=== PATIENT | male | born 1955 | race Caucasian/White ===

== ENCOUNTER → 2021-04-27 17:08 | Outpatient (CLI) | payer BC, SELFPAY ==
--- NOTE | 2021-04-27 17:20 | XR_ITS ---
PROCEDURE: XR CHEST PORTABLE CLINICAL HISTORY: COVID COMPARISON: No exams were available for comparison FINDINGS: The cardiomediastinal silhouette and pulmonary vascularity are within normal limits. There is an faint subtle nodular opacities in both lower lobes. Without previous films for comparison this could represent minimal chronic change but very minimal pneumonic infiltrate cannot be entirely excluded though I somewhat favor the former. No pleural fluid. IMPRESSION: Probably negative chest however if developing pneumonia is strongly suspected clinically follow-up PA and lateral in chest 1-2 days may helpful for additional evaluation . Dictated by: Dr. Gabino Brand MD 04/28/2021 07:46 Dr. Gabino Brand MD in [place] 04/28/2021 07:46
[2021-04-27 17:51] LABS: Basophils # 0.1 K/mm3 (0-0.2); Basophils % 0.7 % (0.1-2.0); Eosinophils # 0.4 K/mm3 (0.0-0.4); Hematocrit 35.7 % (42.0-52.0); Hemoglobin 11.7 g/dL (14.1-18.0); Lymphocytes # 1.2 K/mm3 (0.7-4.5); Lymphocytes % 12.4 % (10-50); Mean Corpuscular HGB Conc 32.7 g/dL (31.8-35.4); Mean Corpuscular Hemoglobin 28.2 pg (27.0-31.2); Mean Corpuscular Volume 86.2 fl (80-94); Mean Platelet Volume 7.5 fl (7.4-10.4); Monocytes # 0.5 K/mm3 (0.1-1.0); Monocytes % 5.2 % (1.7-9.3); Neutrophils # 7.2 K/mm3 (1.8-7.8); Neutrophils % 77.6 % (37.0-80.0); Platelet Count 270 K/mm3 (142-424); Red Blood Count 4.15 M/mm3 (4.60-6.20); Red Cell Distribution Width 15.8 % (11.5-17.5); White Blood Count 9.3 K/mm3 (4.8-10.8)
== END ==
PROVIDERS: PCP Physician Assistant; Visit Provider Physician Assistant
DX: Z20.822 Contact with and (suspected) exposure to COVID-19 (principal)
CPT/HCPCS: 36415; 71045; 85025

== ENCOUNTER 2021-09-07 11:23 | Emergency (ER) | payer BC, SELFPAY ==
[2021-09-07 11:24] VITALS: BP 133/82; PULSE 83; RESP 26; TEMP 36.8; O2SAT 95; BMI 30.8
--- NOTE | 2021-09-07 12:59 | HMH.EDUTC ---
[facility] [place] [facility] [place] Clinical Impression: Bronchitis Disposition: Home, Self-Care Condition on Discharge: Good Instructions: Acute Bronchitis, DI for Sinusitis Additional Instructions: ? Start antibiotic today. Be sure to complete entire prescription even if feeling better ? Monitor temp. Tylenol every 4 hours as needed and / or ibuprofen every 6 hours as needed ( As long as your primary care physician has told you that it ok to take both. For fever/aches/pains ER if no less than 101 despite Tylenol or Motrin ? Humidifier/vaporizer or hot steamy shower ? Inhaler every 4-6 hours as needed like we discussed. If unsure how to use it, ask pharmacist to demonstrate how. Should help open airways and improve cough, wheezing, and shortness of breath ? Mucinex for your cough Be sure to drink lots of water. *Start steroid tomorrow. Helps with inflammation therefore, cough and wheezing. Follow directions on the package. Reviewed side effects. Patient reports taking them before. Follow up IMMEDIATELY for new or worsening of symptoms OR no noticeable improvement over the next 48-72 hours. 911 immediately for any life threatening symptoms such as chest pain or difficulty breathing Prescriptions: predniSONE [Deltasone 10mg tablet] 10 mg PO BID 5 Days #10 tab Transmission Status: Received by [facility] guaiFENesin [Mucinex 600mg tablet] 1 - 2 tab PO BID #20 tab Transmission Status: Received by [facility] Azithromycin [Z-Cristopher 250mg Tab] 250 mg PO DIRECTED #6 tab Transmission Status: Received by [facility] Referrals: Jose Luis Carranza MD [Primary Care Provider] - As needed Medical Decision Making - Khanh Inquiry Pt receiving controlled substance: No Khanh was queried for this patient: No Vital Signs: 09/07/21 11:24 09/07/21 13:49 Temperature 98.3 F 98.3 F Temperature Source Oral Pulse Rate 83 Pulse Rate [Right Radial] 83 Respiratory Rate 26 H 20 Blood Pressure 133/82 Blood Pressure [Right Arm] 133/82 Blood Pressure Mean [Right Arm] 99 02 Sat by Pulse Oximetry 95 - Lab Data Lab results reviewed: Yes: I reviewed the patient's lab results. Orders (Tests/Meds): ED MEDICATIONS Discontinued Medications Generic Name Dose Route Start Last Admin Trade Name Freq PRN Reason Stop Dose Admin Ceftriaxone Sodium 1 gm 09/07/21 13:22 09/07/21 13:34 Ceftriaxone 1gm Vial IM 09/07/21 13:23 1 gm ONCE ONE Administration Lidocaine HCl 0 ml 09/07/21 13:22 09/07/21 13:34 Lidocaine 1% 5ml Pf Vial IM 09/07/21 13:23 2.1 ml ONCE ONE Administration Methylprednisolone Sodium Succinate 125 mg 09/07/21 13:22 09/07/21 13:34 Methylprednisolone Sod Succ 125mg Vial IM 09/07/21 13:23 125 mg ONCE ONE Administration [facility] [place] - General Stated complaint: chest congestion, covid symptoms Time Seen by Provider: 09/07/21 12:59 Mode of Arrival: Ambulatory Source of Information: Patient Limitations: No Limitations Description of Symptoms (Recalled from Triage Doc. by RN): C/O chest congestion and cough since Saturday HEENT Symptoms (Recalled from RN notes): No Resp Symptoms (Recalled from RN notes): Yes (cough, chest congestion) Skin Symptoms (Recalled from RN notes): No MS Symptoms (Recalled from RN notes): No Functional Status (Recalled from RN notes): n/a - History of Present Illness Provider Complaint: Patient States that he has been havins sinus drainage and chest congestion since Saturday States that he feels like he is having drainage in the back of his throat trying to move into his chest area States that he is not able to cough anything up States that also he was around someone last week that tested positive for COVID and wanted to get checked for it - Related Data Home Medications Medication Instructions Recorded Confirmed naproxen sodium 220 mg capsule 220 mg PO BID PRN 07/28/21 07/28/21 omeprazole 10 mg capsule,delayed 10 mg PO DAILY 07/28/21 07/28/21 rele
[2021-09-07 13:49] VITALS: BP 133/82; PULSE 83; RESP 20; TEMP 36.8; O2SAT 95
== END 2021-09-07 13:52 | disposition home or self-care (01) ==
PROVIDERS: Emergency Provider Nurse Practitioner; PCP Family Medicine
DX: U07.1 COVID-19 (principal); J20.9 Acute bronchitis, unspecified; K21.9 Gastro-esophageal reflux disease without esophagitis
CPT/HCPCS: 96372; 99202; C9803; G0463; U0003; U0005

== ENCOUNTER → 2022-07-03 10:43 | Outpatient (CLI) | payer BC, SELFPAY ==
--- NOTE | 2022-07-03 10:51 | XR_ITS ---
FINAL REPORT CLINICAL HISTORY: SOB COMPARISON: 04/27/2021 FINDINGS: Two views of the chest were obtained. The heart size and pulmonary vascularity are within normal limits. The mediastinum is normal. No acute pulmonary abnormality is identified. There is no pneumothorax. The bony thorax is intact. IMPRESSION: No active cardiopulmonary disease. Reviewed, Interpreted and Dictated by Avery Grant III, MD Transcribed by Maricruz Sood Authenticated and [facility]
--- NOTE | 2022-07-03 11:12 | ECG_ITS ---
APPROVED REPORT Exam: Resting ECG HR:66 bpm ECG Measurements Heart Rate 66 AXES MO 143 P 34 QRSd 103 QRS 90 QT 381 T 115 QTc 394 Conclusion SINUS RHYTHM NONSPECIFIC T-WAVE ABNORMALITY BORDERLINE ECG UNCONFIRMED REPORT Electronically signed by : Jarett Amaral MD 07/04/2022 21:04:14
== END ==
PROVIDERS: PCP Family Medicine; Visit Provider Nurse Practitioner Family
DX: R06.02 Shortness of breath (principal)
CPT/HCPCS: 71046; 93005

== ENCOUNTER → 2022-07-16 12:47 | Outpatient (CLI) | payer BC, MEDICARE, SELFPAY ==
--- NOTE | 2022-07-16 13:12 | CA_ITS ---
APPROVED REPORT EXAM: Comprehensive 2D, Doppler, and color-flow Echocardiogram [place] Boner: Camila Dubon RVT Ht: 5 ft 9 in Wt: 203lbs BSA: 2.08 BP: 132/65 mmHg Indications: MURMUR,GERD 2D Dimensions LVOT 1.92 cm (M/F) 1.5-2.5 LA Volume 59.40 mL LA Volume Index 28.55 mL/m2 (M/F) 16-34 M-Mode Dimensions RVDd 3.26 cm (0.9-2.6) LA Diam 4.85 cm (1.9-4.0) LVDd 6.03 cm (3.5-5.7) Ao Diam 2.99 cm (2.0-3.7) LVDs 3.62 cm (3.5-5.7) IVSd 0.80 cm (0.6-1.1) PWd 1.07 cm (0.6-1.1) EF (Teich) 69.70% FS 40.00% EDV (Teich) 182.10 mL TAPSE 2.42 (<1.7) ESV (Teich) 55.20 mL LV Diastology E Decel Time 180.00 (160-240 msec) E/A Ratio 0.9 MED E' 8.50 (< 7 cm/sec) E'/MED E' Ratio 12.08 (>14) LAT E' 10.60 (<10 cm/sec) E/LAT E' Ratio 9.69 (>14) Aortic Valve AO Peak GR. 10.30 mmHg Mitral Valve MV E [place]on. 103.00 (40-130 cm/s) MV A Velocity 111.00 (40-130 cm/s) E/A Ratio 0.93 MV Decel. Time 180.00 (160-240 ms) MV PHT 53.00 ms Pulmonary Valve PV Peak Velocity 95.00 (50-150 cm/s) Left Ventricle Left atrium is mildly enlarged, left ventricle is normal size, left ventricular wall thickness is upper limit of normal, there is preserved left ventricular systolic function, estimated ejection fraction 55% with no regional wall motion abnormality, grade 1 diastolic dysfunction seen without tissue Doppler evidence of raise left atrial pressure. Right Ventricle Right atrium and right ventricle are mildly enlarged with normal contractility. Aortic Valve Aortic valve is minimally thickened and fibrosed there is no aortic stenosis or aortic insufficiency. Mitral Valve Mitral valve leaflets are minimally thickened, there is mild mitral regurgitation. Tricuspid Valve Tricuspid valve grossly normal, there is mild tricuspid regurgitation, tricuspid regurgitation jet velocity is inadequate for calculation of the right ventricular systolic pressure. Pulmonic Valve Pulmonic valve is poorly visualized. Great Vessels Aortic root is normal size. Inferior vena cava is normal size with normal inspiratory collapse. Pericardium No significant pericardial effusion noted. Conclusion 1. Mild biatrial enlargement, normal left ventricular size, estimated ejection fraction 55% with no regional wall motion abnormality, grade 1 diastolic dysfunction seen without tissue Doppler evidence of raise left atrial pressure. 2. Thickened and calcified aortic valve without aortic stenosis aortic insufficiency. 3. Mild mitral and tricuspid regurgitation. 4. No significant pericardial effusion. 5. Inferior vena cava normal size with normal inspiratory collapse. Electronically signed by : Fish Be MD 07/16/2022 18:36:02
== END ==
PROVIDERS: PCP Family Medicine; Visit Provider Nurse Practitioner Family
DX: R01.1 Cardiac murmur, unspecified (principal)
CPT/HCPCS: 93306

== ENCOUNTER 2023-12-13 09:41 | Outpatient (CLI) | payer BC, MEDICARE, SELFPAY ==
--- NOTE | 2023-12-13 09:45 | XR_ITS ---
FINAL REPORT CLINICAL HISTORY: cough, wheezing COMPARISON: 07/03/2022 FINDINGS: Two views of the chest were obtained. The heart size and pulmonary vascularity are within normal limits. The mediastinum is normal. No acute pulmonary abnormality is identified. There is no pneumothorax. The bony thorax is intact. IMPRESSION: No active cardiopulmonary disease. Reviewed, Interpreted and Dictated by Avery Grant III, MD Transcribed by Ashlyn Samaniego Authenticated and [facility]
[2023-12-13 18:08] LABS: Coronavirus 19, PCR Not Detected (NotDetected); Influenza A, PCR Not Detected (NotDetected); Influenza B, PCR Not Detected (NotDetected)
== END 2023-12-13 23:59 ==
LOC: RAD 09:42
PROVIDERS: PCP Family Medicine; Visit Provider Student in an Organized Health Care Education/Training Program
DX: R05.9 Cough, unspecified (principal); R06.2 Wheezing
CPT/HCPCS: 71046; 87636

== ENCOUNTER 2024-01-23 20:28 | Emergency (ER) | payer BC, MEDICARE, SELFPAY ==
--- NOTE | 2024-01-23 20:32 | ED_ITS ---
Discharge Plan Disposition Patient Disposition: Home, Self-Care Condition: Good Prescriptions Prescriptions: New prednisone 50 mg tablet 50 mg PO DAILY 5 Days Qty: 5 0RF No Action omeprazole 10 mg capsule,delayed release(DR/EC) 10 mg PO DAILY naproxen sodium [Aleve] 220 mg capsule 220 mg PO BID PRN benzonatate 100 mg capsule 100 mg PO BID PRN (Reason: cough) Qty: 20 0RF azithromycin [Zithromax Z-Cristopher] 250 mg tablet See Rx Instructions PO .COMPLEX Qty: 6 0RF Rx Instructions: For 250 mg dose pack: take 500 mg today (day 1), then 250 mg for 4 days (days 2-5) PO albuterol sulfate 90 mcg/actuation HFA aerosol inhaler 1 inh inhalation QID Qty: 6.7 2RF prednisone 20 mg tablet 20 mg PO BID Qty: 10 0RF Referrals Follow up/Referrals: Jose Luis Carranza MD [Primary Care Provider] - See instructions Esme Hazel MD [Physician] - See instructions Activity Restrictions/Add. Instructions Additional Instructions/Restrictions: Please call in the morning and make an appointment with pulmonology. Please schedule follow-up appointment with your primary care physician. If symptoms recur or worsen please return to the emergency department as needed. Clinical Impressions Clinical Impression: Asthma with exacerbation Qualifiers: Asthma severity: mild Asthma persistence: intermittent Qualified Code(s): J45.21 - Mild intermittent asthma with (acute) exacerbation Discharge ED Provider: Samina Villarreal Adult HPI <FRED Jain - Last Filed: 01/23/24 22:06> General Chief complaint: Shortness of Breath/Dyspnea Stated complaint: SOA Time Seen by Provider: 01/23/24 20:31 History of Present Illness HPI narrative: Patient is a 68-year-old male who presents initially with chief complaint of wheezing and shortness of breath. Patient was asleep and woke up significantly wheezing. He had a rescue inhaler that he took and came on to the hospital. Most of his symptoms abated however he continued on to the hospital to be evaluated. He denies chest pain fever chills hemoptysis hematochezia melena nausea vomit diarrhea. Related Data Home Medications Medication Instructions Recorded Confirmed naproxen sodium 220 mg capsule 220 mg PO BID PRN 07/28/21 12/13/23 (Aleve) omeprazole 10 mg capsule,delayed 10 mg PO DAILY 07/28/21 12/13/23 release Previous Rx's Medication Instructions Recorded albuterol sulfate 90 mcg/actuation 1 inh inhalation QID #6.7 grams 12/13/23 aerosol inhaler azithromycin 250 mg tablet See Rx Instructions PO .COMPLEX #6 12/13/23 (Zithromax Z-Cristopher) tabs benzonatate 100 mg capsule 100 mg PO BID PRN cough #20 caps 12/13/23 prednisone 20 mg tablet 20 mg PO BID #10 tabs 12/13/23 prednisone 50 mg tablet 50 mg PO DAILY 5 days #5 tabs 01/23/24 Allergies Allergy/AdvReac Type Severity Reaction Status Date / Time No Known Allergies Allergy Verified 12/13/23 08:34 [facility] <FRED Jain - Last Filed: 01/23/24 22:06> [facility] Disclaimer: The information contained in this section may have been updated after the patient was seen, as this information can be updated by other users. Medical History (Updated 01/23/24 @ 21:36 by FRED Jain) GERD (gastroesophageal reflux disease) Surgical History (Updated 12/13/23 @ 08:35 by Penny Gant) No significant past surgical history Family History (Updated 12/13/23 @ 08:35 by Penny Gant) Other No significant family history Social History Smoking Status: Former smoker alcohol intake: never current occupational status: retired Travel in the last 8 weeks: None <FRED Jain - Last Filed: 01/23/24 22:06> ROS Obtained: Yes Systems reviewed as appropriate & no additional complaints except as documented Physical Exam <FRED Jain - Last Filed: 01/23/24 22:06> General General appearance: alert and in no apparent distress Head Head exam: atraumatic and normal inspection Eye Eye exam: Present normal appearance, PERRL and EOMI ENT ENT exam: Present normal exam, normal oropharynx and mucous membranes moist Neck Neck exam: Present normal inspection and full ROM; Absent lymphadenopathy Chest Chest inspection: Present normal inspection and symmetric chest wall rise Respiratory Respiratory exam: Present wheezes (Faint end expiratory); Absent accessory muscle use Cardiovascular Cardiovascular exam: Present regular rate, normal rhythm, normal heart sounds, +S1 and +S2 Abdominal Exam Abdominal exam: Present soft and normal bowel sounds; Absent tenderness, guarding or rebound Extremities Exam Extremities exam: Present normal inspection and full ROM Neurological Exam Neurological exam: Present alert and oriented X3 Psychiatric Psychiatric exam: Present normal affect and normal mood Skin Skin exam: Present warm, dry and normal color Lymphatic Lymphatic Findings: no adenopathy Medical Decision Making <FRED Jain - Last Filed: 01/23/24 22:06> Medical Records Medical records reviewed: Yes I reviewed the patient's medical records. Khanh Inquiry Pt receiving controlled substance: No Vital Signs: 01/23/24 20:38 01/23/24 22:16 Temperature 98.2 F 98.0 F Temperature Source Oral Oral Pulse Rate 72 Pulse Rate [Right Brachial] 78 Respiratory Rate 16 19 Blood Pressure 125/75 Blood Pressure [Right Arm] 189/81 H Blood Pressure Mean [Right Arm] 117 Blood Pressure Source Automatic Cuff Blood Pressure Source [Right Arm] Automatic Cuff Blood Pressure Position Sitting Blood Pressure Position [Right Arm] Sitting 02 Sat by Pulse Oximetry 97 Oxygen Delivery Method Room Air Room Air Lab Data Lab results reviewed: Yes I reviewed the patient's lab results. Lab Results 01/23/24 20:45: SARS-CoV-2 (PCR) Not detected, Influenza A Untype (PCR) Not detected, Influenza Type B (PCR) Not detected 01/23/24 20:50: WBC 8.4, RBC 3.45 L, Hgb 11.4 L, Hct 31.6 L, MCV 91.8, MCH 33.2 H, MCHC 36.1 H, RDW 15.9, Plt Count 268, MPV 7.6, Neut % (Auto) 72.9, Lymph % (Auto) 17.5, [place] % (Auto) 5.9, Eos % (Auto) 3.0, Baso % (Auto) 0.7, Neut # (Auto) 6.2, Lymph # (Auto) 1.5, [place] # (Auto) 0.5, Eos # (Auto) 0.3, Baso # (Auto) 0.1, D-Dimer 0.46, Sodium 139, Potassium 4.1, Chloride 105, Carbon Dioxide 28, Anion Gap 10.1, BUN 15, Creatinine 1.20, Estimated Creat Clear 75, Estimated GFR 60, Est GFR ( Amer) 73, Glucose 117 H, Lactate 1.0, Calcium 8.9, Total Bilirubin 0.6, AST 27, ALT 29, Alkaline Phosphatase 138 H, Troponin I < 0.01, Total Protein 7.1, Albumin 4.2, Globulin 2.9, Albumin/Globulin Ratio 1.4 01/23/24 20:50 01/23/24 20:50 Orders (Tests/Meds): ED MEDICATIONS Discontinued Medications Generic Name Dose Route Start Last Admin Trade Name Freq PRN Reason Stop Dose Admin Acetaminophen 1,000 mg 01/23/24 20:44 01/23/24 20:54 Acetaminophen 1,000mg/100ml Vial IV 01/23/24 20:45 1,000 mg ONCE ONE Administration Albuterol/Ipratropium 3 ml 01/23/24 20:45 01/23/24 21:13 Ipratropium/Albuterol 3 Ml Neb IH 01/23/24 20:46 3 ml ONCE ONE Administration Dexamethasone Sodium Phosphate 10 mg 01/23/24 20:45 01/23/24 20:53 Dexamethasone 4mg/Ml 1ml Vial IV 01/23/24 20:46 10 mg ONCE ONE Administration Ketorolac Tromethamine 15 mg 01/23/24 20:44 01/23/24 20:53 Ketorolac 30mg/Ml Vial IV 01/23/24 20:45 15 mg ONCE ONE Administration ORDERS Category Date Time Status Chest XR -- portable [XR chest portable] Stat Exams 01/23/24 20:33 Completed CBC w/Auto Diff [Complete Blood Count Auto Diff] Stat Lab 01/23/24 20:50 Completed CMP [Comprehensive Metabolic Panel] Stat Lab 01/23/24 20:50 Completed D-Dimer Stat Lab 01/23/24 20:50 Completed Lactic Acid Stat Lab 01/23/24 20:50 Completed Rapid PCR Covid and Flu A/B Stat Lab 01/23/24 20:45 Completed Trop I [Troponin I] Stat Lab 01/23/24 20:50 Completed ECG initial Besson Routine Y 01/23/24 20:36 Completed Medical Decision Narrative: In summary patient is a 68-year-old male who presents to the emergency department for evaluation of wheezing and shortness of breath. Patient is hemodynamically stable and afebrile upon arrival, afebrile. Physical exam is remarkable for faint end expiratory wheezes but otherwise has an unremarkable nonfocal exam normal heart rate no chest pain no nausea no vomiting no tenderness to palpation no increased work of breathing no retractions.. Differential diagnosis includes asthma exacerbation versus COPD exacerbation versus ACS versus upper respiratory tract infection. Initial workup will be conducted with hematologic labs chest x-ray respiratory swabs for COVID flu. Initial interventions include DuoNeb dexamethasone acetaminophen tramadol. Initial workup reviewed by me laboratory investigations are nonactionable and my informal personal interpretation is plain film chest x-ray shows no acute processes.. Upon repeat evaluation had no worsening of his symptoms and actually reports feeling slightly better even though he had no wheezing.. Given this appropriate for discharge home with close follow-up with his PCP. Will give referral for pulmonology. <Samina Villarreal MD - Last Filed: 01/23/24 23:47> Vital Signs: 01/23/24 20:38 01/23/24 22:16 Temperature 98.2 F 98.0 F Temperature Source Oral Oral Pulse Rate 72 Pulse Rate [Right Brachial] 78 Respiratory Rate 16 19 Blood Pressure 125/75 Blood Pressure [Right Arm] 189/81 H Blood Pressure Mean [Right Arm] 117 Blood Pressure Source Automatic Cuff Blood Pressure Source [Right Arm] Automatic Cuff Blood Pressure Position Sitting Blood Pressure Position [Right Arm] Sitting 02 Sat by Pulse Oximetry 97 Oxygen Delivery Method Room Air Room Air Lab Data Lab Results 01/23/24 20:45: SARS-CoV-2 (PCR) Not detected, Influenza A Untype (PCR) Not detected, Influenza Type B (PCR) Not detected 01/23/24 20:50: WBC 8.4, RBC 3.45 L, Hgb 11.4 L, Hct 31.6 L, MCV 91.8, MCH 33.2 H, MCHC 36.1 H, RDW 15.9, Plt Count 268, MPV 7.6, Neut % (Auto) 72.9, Lymph % (Auto) 17.5, [place] % (Auto) 5.9, Eos % (Auto) 3.0, Baso % (Auto) 0.7, Neut # (Auto) 6.2, Lymph # (Auto) 1.5, [place] # (Auto) 0.5, Eos # (Auto) 0.3, Baso # (Auto) 0.1, D-Dimer 0.46, Sodium 139, Potassium 4.1, Chloride 105, Carbon Dioxide 28, Anion Gap 10.1, BUN 15, Creatinine 1.20, Estimated Creat Clear 75, Estimated GFR 60, Est GFR ( Amer) 73, Glucose 117 H, Lactate 1.0, Calcium 8.9, Total Bilirubin 0.6, AST 27, ALT 29, Alkaline Phosphatase 138 H, Troponin I < 0.01, Total Protein 7.1, Albumin 4.2, Globulin 2.9, Albumin/Globulin Ratio 1.4 Orders (Tests/Meds): ED MEDICATIONS Discontinued Medications Generic Name Dose Route Start Last Admin Trade Name Freq PRN Reason Stop Dose Admin Acetaminophen 1,000 mg 01/23/24 20:44 01/23/24 20:54 Acetaminophen 1,000mg/100ml Vial IV 01/23/24 20:45 1,000 mg ONCE ONE Administration Albuterol/Ipratropium 3 ml 01/23/24 20:45 01/23/24 21:13 Ipratropium/Albuterol 3 Ml Neb IH 01/23/24 20:46 3 ml ONCE ONE Administration Dexamethasone Sodium Phosphate 10 mg 01/23/24 20:45 01/23/24 20:53 Dexamethasone 4mg/Ml 1ml Vial IV 01/23/24 20:46 10 mg ONCE ONE Administration Ketorolac Tromethamine 15 mg 01/23/24 20:44 01/23/24 20:53 Ketorolac 30mg/Ml Vial IV 01/23/24 20:45 15 mg ONCE ONE Administration ORDERS Category Date Time Status Chest XR -- portable [XR chest portable] Stat Exams 01/23/24 20:33 Completed CBC w/Auto Diff [Complete Blood Count Auto Diff] Stat Lab 01/23/24 20:50 Completed CMP [Comprehensive Metabolic Panel] Stat Lab 01/23/24 20:50 Completed D-Dimer Stat Lab 01/23/24 20:50 Completed Lactic Acid Stat Lab 01/23/24 20:50 Completed Rapid PCR Covid and Flu A/B Stat Lab 01/23/24 20:45 Completed Trop I [Troponin I] Stat Lab 01/23/24 20:50 Completed ECG initial Besson Routine Y 01/23/24 20:36 Completed Medical Decision Narrative: In summary patient is a 68-year-old male who presents to the emergency department for evaluation of wheezing and shortness of breath. Patient is hemodynamically stable and afebrile upon arrival, afebrile. Physical exam is remarkable for faint end expiratory wheezes but otherwise has an unremarkable nonfocal exam normal heart rate no chest pain no nausea no vomiting no tenderness to palpation no increased work of breathing no retractions.. Differential diagnosis includes asthma exacerbation versus COPD exacerbation versus ACS versus upper respiratory tract infection. Initial workup will be conducted with hematologic labs chest x-ray respiratory swabs for COVID flu. Initial interventions include DuoNeb dexamethasone acetaminophen tramadol. Initial workup reviewed by me laboratory investigations are nonactionable and my informal personal interpretation is plain film chest x-ray shows no acute processes.. Upon repeat evaluation had no worsening of his symptoms and actually reports feeling slightly better even though he had no wheezing.. Given this appropriate for discharge home with close follow-up with his PCP. Will give referral for pulmonology. I was consulted by the KIM, and we discussed the complexity of the problems being addressed. I approved the treatment and management plan for this patient's care in the Emergency Department, thus performing a substantive portion of the medical decision making. Samina Villarreal MD Critical Care <FRED Jain - Last Filed: 01/23/24 22:06> Critical Care Time Critical Care Time: No
--- NOTE | 2024-01-23 20:33 | XR_ITS ---
PROCEDURE INFORMATION: Exam: XR Chest Exam date and time: 01/23/2024 8:33 PM Age: 68 years old Clinical indication: Cough and wheezing; Additional info: Cough wheezing TECHNIQUE: Imaging protocol: Radiologic exam of the chest. Views: 1 view. COMPARISON: CR XR CHEST 2V 12/13/2023 10:08 AM FINDINGS: Lungs: Unremarkable. No consolidation. Pleural spaces: Unremarkable. No pleural effusion. No pneumothorax. Heart/Mediastinum: Unremarkable. No cardiomegaly. Bones/joints: Moderate degenerative changes of the spine and shoulders noted. No acute fracture. IMPRESSION: No acute disease
--- NOTE | 2024-01-23 20:36 | ECG_ITS ---
APPROVED REPORT Exam: Resting ECG HR:75 bpm ECG Measurements Heart Rate 75 AXES NH 137 P 35 QRSd 105 QRS 101 QT 387 T 77 QTc 416 Conclusion SINUS RHYTHM POSSIBLE RIGHT VENTRICULAR HYPERTROPHY [SOME/ALL OF: PROMINENT R IN V1, LATE TRANSITION, RAD, KATJA, SSS] NONSPECIFIC T-WAVE ABNORMALITY ABNORMAL ECG UNCONFIRMED REPORT Electronically signed by : Jarett Amaral MD 01/24/2024 10:45:39
[2024-01-23 20:38] VITALS: BP 189/81; PULSE 78; RESP 16; TEMP 36.8; O2SAT 97; BMI 32.3
[2024-01-23 20:48] LABS: Coronavirus 19, PCR Not Detected (NotDetected); Influenza A, PCR Not Detected (NotDetected); Influenza B, PCR Not Detected (NotDetected)
[2024-01-23] MEDS: DEXAMETHASONE 4MG/ML 1ML VIAL 10 MG IV (20:53)
[2024-01-23] MEDS: KETOROLAC 30MG/ML VIAL 15 MG IV (20:53)
[2024-01-23] MEDS: ACETAMINOPHEN 1,000MG/100ML VIAL 1000 MG IV (20:54)
[2024-01-23 20:58] LABS: Basophils # 0.1 K/mm3 (0-0.2); Basophils % 0.7 % (0.1-2.0); Eosinophils # 0.3 K/mm3 (0.0-0.4); Hematocrit 31.6 % (42.0-52.0); Hemoglobin 11.4 g/dL (14.1-18.0); Lymphocytes # 1.5 K/mm3 (0.7-4.5); Lymphocytes % 17.5 % (10-50); Mean Corpuscular HGB Conc 36.1 g/dL (31.8-35.4); Mean Corpuscular Hemoglobin 33.2 pg (27.0-31.2); Mean Corpuscular Volume 91.8 fl (80-94); Mean Platelet Volume 7.6 fl (7.4-10.4); Monocytes # 0.5 K/mm3 (0.1-1.0); Monocytes % 5.9 % (1.7-9.3); Neutrophils # 6.2 K/mm3 (1.8-7.8); Neutrophils % 72.9 % (37.0-80.0); Platelet Count 268 K/mm3 (142-424); Red Blood Count 3.45 M/mm3 (4.60-6.20); Red Cell Distribution Width 15.9 % (11.5-17.5); White Blood Count 8.4 K/mm3 (4.8-10.8)
[2024-01-23 21:04] LABS: Alanine Aminotransferase 29 U/L (12-78); Albumin Level 4.2 g/dl (3.5-5.0); Albumin/Globulin Ratio 1.4 (1.1-1.8); Alkaline Phosphatase 138 U/L (38-126); Anion Gap 10.1 mEq/L (5-15); Aspartate Amino Transferase 27 U/L (17-59); Bilirubin,Total 0.6 mg/dl (0.2-1.3); Blood Urea Nitrogen 15 mg/dl (9-20); Calcium 8.9 mg/dl (8.4-10.2); Carbon Dioxide 28 mmol/L (22.0-30.0); Chloride 105 mmol/L (98-107); Creatinine Clearance Estimated 75 mL/min (50-200); Estimated Glomerular Filt Rate 60 ml/min (>60); GFR (African American) 73 ML/MIN (>60); Globulin 2.9 g/dL (1.3-3.2); Glucose 117 mg/dl (74-100); Potassium 4.1 mmoL/L (3.5-5.1); Sodium 139 mmol/L (136-145); Total Protein,Serum 7.1 g/dl (6.3-8.2)
[2024-01-23 21:09] LABS: D-Dimer 0.46 ug/mL (0.0-0.5)
[2024-01-23] MEDS: IPRATROPIUM/ALBUTEROL 3 ML NEB IH (21:13)
[2024-01-23 21:20] LABS: Troponin I < 0.01 ng/ml (0.00-0.034)
[2024-01-23 22:16] VITALS: BP 125/75; PULSE 72; RESP 19; TEMP 36.7; O2SAT 98
== END 2024-01-23 22:16 | disposition home or self-care (01) ==
PROVIDERS: Physician Assistant; Emergency Provider Emergency Medicine; PCP Family Medicine
DX: J45.21 Mild intermittent asthma with (acute) exacerbation (principal); R06.02 Shortness of breath; K21.9 Gastro-esophageal reflux disease without esophagitis; Z87.891 Personal history of nicotine dependence
CPT/HCPCS: 71045; 80053; 83605; 84484; 85025; 85378; 87636; 93005; 96374; 96375; 99285; J0131

== ENCOUNTER 2024-02-02 18:29 | Emergency (ER) | payer BC, MEDICARE, SELFPAY ==
[2024-02-02 18:45] VITALS: BP 175/80; PULSE 85; RESP 20; TEMP 36.7; O2SAT 97; BMI 31.3
--- NOTE | 2024-02-02 19:10 | EXP.UTC ---
Discharge Plan Disposition Patient Disposition: Home, Self-Care Condition: Good Prescriptions Prescriptions: No Action albuterol sulfate 90 mcg/actuation HFA aerosol inhaler 1 inh inhalation QID Qty: 6.7 2RF Referrals Follow up/Referrals: Jose Luis Carranza MD [Primary Care Provider] - See instructions Activity Restrictions/Add. Instructions Additional Instructions/Restrictions: Use your Inhaler as prescribed Follow up with your Family Doctor if no improvement Try sleeping in recliner may help with breathing Contact Pulmonology if symptoms worsen Straight to ER if any life threatening symptoms Clinical Impressions Clinical Impression: Asthma with exacerbation Qualifiers: Asthma severity: mild Asthma persistence: intermittent Qualified Code(s): J45.21 - Mild intermittent asthma with (acute) exacerbation Instructions Patient Instructions: Asthma -- Adult, DI for Asthma -- Adult Discharge ED Provider: Anne-Marie Benitez [facility] [place] General Stated complaint: SOA Mode of Arrival: Ambulatory Source of Information: Patient Limitations: No Limitations Time Seen by Provider: 02/02/24 19:21 Description of Symptoms (Recalled from Triage Doc. by RN): PATIENT C/O SOA WHEN LYING AND WITH EXERTION THAT STARTED LAST NIGHT HEENT Symptoms (Recalled from RN notes): No Resp Symptoms (Recalled from RN notes): Yes Skin Symptoms (Recalled from RN notes): No MS Symptoms (Recalled from RN notes): No Functional Status (Recalled from RN notes): WNL History of Present Illness Provider Complaint: Patient states that he has been having issues with breathing on and off for a couple of weeks and is scheduled for PFT on Wed States that he noticed last night he was having some wheezing again and feeling tight like he has before and they think he may have asthma States that last time he used his inhaler and it didnt help he came in and got a breathing treatment and steriod shot and it helped alot wandering if he may need another shot and breathing treatment to help with the wheezing States that he has been using his inhaler but not sure if he is using it enough Related Data Previous Rx's Medication Instructions Recorded albuterol sulfate 90 mcg/actuation 1 inh inhalation QID #6.7 grams 12/13/23 aerosol inhaler Allergies Allergy/AdvReac Type Severity Reaction Status Date / Time No Known Allergies Allergy Verified 12/13/23 08:34 Worker's Comp Is this a Worker's Comp case?: No [facility] Disclaimer: The information contained in this section may have been updated after the patient was seen, as this information can be updated by other users. Medical History (Updated 02/02/24 @ 19:30 by Anne-Marie Benitez APRN) GERD (gastroesophageal reflux disease) Surgical History (Updated 12/13/23 @ 08:35 by Penny Gant) No significant past surgical history Family History (Updated 12/13/23 @ 08:35 by Penny Gant) Other No significant family history Social History Smoking Status: Former smoker alcohol intake: never current occupational status: retired Travel in the last 8 weeks: None ROS Obtained: Yes All systems reviewed & no additional complaints except as documented and Yes Systems reviewed as appropriate & no additional complaints except as documented Constitutional Constitutional: Reports system reviewed and no additional complaints, except as documented and Reports as per HPI ENT Ears, Nose, Mouth, and Throat: Reports system reviewed and no additional complaints, except as documented and Reports as per HPI Cardiovascular Cardiovascular: Reports system reviewed and no additional complaints, except as documented and Reports as per HPI Respiratory Respiratory: Reports system reviewed and no additional complaints, except as documented, Reports as per HPI, Reports wheezing and Reports other (feeling SOA at times and wheezing when he lays down) Gastrointestinal Gastrointestingal: Reports system reviewed and no additional complaints, except as documented and as per HPI Musculoskeletal Musculoskeletal: Reports system reviewed and no additional complaints, except as documented and Reports as per HPI Allergic/Immunologic Allergic/Immunologic: Reports wheezing Physical Exam General General appearance: alert and in no apparent distress ENT ENT exam: Present mucous membranes moist Respiratory Respiratory exam: Present normal lung sounds bilaterally and wheezes (mild); Absent respiratory distress Cardiovascular Cardiovascular exam: Present regular rate and normal heart sounds; Absent normal rhythm Neurological Exam Neurological exam: Present alert, oriented X3 and normal gait Medical Decision Making Khanh Inquiry Pt receiving controlled substance: No Khanh was queried for this patient: No Vital Signs: 02/02/24 18:45 Temperature 98.1 F Temperature Source Oral Pulse Rate [Left Brachial] 85 Respiratory Rate 20 Blood Pressure [Left Arm] 175/80 H Blood Pressure Mean [Left Arm] 111 Blood Pressure Source [Left Arm] Automatic Cuff Blood Pressure Position [Left Arm] Sitting 02 Sat by Pulse Oximetry 97 Oxygen Delivery Method Room Air Medical Decision Narrative: Discussed with patient about transfer to the ED for further work up and declined and decided against steriod injection due to it is recommended that you not have any steriods 3 days prior to PFT will do [facility] in the [facility] and patient will follow up with PCP or contact Pulmonology tomorrow if he is still having symptoms Patient states that he is breathing much better no longer feeling tight and wheezing now gone
[2024-02-02] MEDS: IPRATROPIUM/ALBUTEROL 3 ML NEB IH (19:30)
[2024-02-02 19:49] VITALS: BP 175/80; PULSE 85; RESP 20; TEMP 36.7; O2SAT 97
== END 2024-02-02 19:53 | disposition home or self-care (01) ==
PROVIDERS: Emergency Provider Nurse Practitioner; PCP Family Medicine
DX: J45.21 Mild intermittent asthma with (acute) exacerbation (principal); R06.02 Shortness of breath; K21.9 Gastro-esophageal reflux disease without esophagitis; Z87.891 Personal history of nicotine dependence
CPT/HCPCS: 99212; 99214; G0463

== ENCOUNTER 2024-02-05 09:33 | Outpatient (CLI) | payer BC, SELFPAY ==
[2024-02-05] MEDS: ALBUTEROL 0.083% 2.5 MG/3 ML NEB IH (15:41)
== END 2024-02-05 23:59 ==
PROVIDERS: PCP Family Medicine; Visit Provider Family Medicine
DX: J44.9 Chronic obstructive pulmonary disease, unspecified (principal)
CPT/HCPCS: 94060; 94726; 94729

== ENCOUNTER 2024-08-29 12:19 | Emergency (ER) | payer BC, SELFPAY ==
[2024-08-29 13:27] VITALS: BP 138/73; PULSE 69; RESP 16; TEMP 36.7; O2SAT 98; BMI 29.5
[2024-08-29] MEDS: DEXAMETHASONE 4MG/ML 1ML VIAL 4 MG IM (14:08)
--- NOTE | 2024-08-29 14:14 | ED_ITS ---
Discharge Plan Disposition Patient Disposition: Home, Self-Care Condition: Good Prescriptions Prescriptions: New azithromycin 250 mg tablet See Rx Instructions .ROUTE .COMPLEX Qty: 6 0RF Rx Instructions: For 250 mg dose pack: take 500 mg today (day 1), then 250 mg for 4 days (days 2-5) benzonatate 100 mg capsule 100 mg PO TID PRN (Reason: cough) Qty: 30 0RF No Action albuterol sulfate 90 mcg/actuation HFA aerosol inhaler 1 inh inhalation QID Qty: 6.7 2RF Referrals Follow up/Referrals: Jose Luis Carranza MD [Primary Care Provider] - See instructions Activity Restrictions/Add. Instructions Additional Instructions/Restrictions: Take medication as prescribed. Increase fluids and rest. Follow up with primary care provider. Clinical Impressions Clinical Impression: Bronchitis Instructions Patient Instructions: DI for Acute Bronchitis Print Language Print Language: British Discharge ED Provider: Dorys Epstein [facility] [place] HPI General Stated complaint: congested, soa Mode of Arrival: Ambulatory Source of Information: Patient Limitations: No Limitations Time Seen by Provider: 08/29/24 13:50 Description of Symptoms (Recalled from Triage Doc. by RN): Reports congestion, cough and wheezing. HEENT Symptoms (Recalled from RN notes): Yes Resp Symptoms (Recalled from RN notes): No Skin Symptoms (Recalled from RN notes): No MS Symptoms (Recalled from RN notes): No Functional Status (Recalled from RN notes): wnl History of Present Illness Provider Complaint: Pt reports that he has had a cough with yellow phlegm and wheezing the past couple of days. He reports that he has a rescue inhaler, but can not afford the COPD inhaler that his doctor wanted him to take. He reports that he quit smoking 15 years ago. Related Data Previous Rx's ?Medication ?Instructions ?Recorded albuterol sulfate 90 mcg/actuation 1 inh inhalation QID #6.7 grams 12/13/23 aerosol inhaler azithromycin 250 mg tablet See Rx Instructions PO .COMPLEX #6 08/29/24 tabs benzonatate 100 mg capsule 100 mg PO TID PRN cough #30 caps 08/29/24 Allergies Allergy/AdvReac Type Severity Reaction Status Date / Time No Known Allergies Allergy Verified 12/13/23 08:34 Worker's Comp Is this a Worker's Comp case?: No [facility] Disclaimer: The information contained in this section may have been updated after the patient was seen, as this information can be updated by other users. Medical History (Updated 08/29/24 @ 14:24 by Dorys Epstein APRN) GERD (gastroesophageal reflux disease) Surgical History (Updated 12/13/23 @ 08:35 by Penny Greco) No significant past surgical history Family History (Updated 12/13/23 @ 08:35 by Penny Greco) Other No significant family history Social History Smoking Status: Former smoker alcohol intake: never current occupational status: retired Travel in the last 8 weeks: None ROS Obtained: Yes All systems reviewed & no additional complaints except as documented Constitutional Constitutional: Reports system reviewed and no additional complaints, except as documented and Reports malaise Eyes Eyes: Reports system reviewed and no additional complaints, except as documented ENT Ears, Nose, Mouth, and Throat: Reports system reviewed and no additional complaints, except as documented and Reports nasal discharge Cardiovascular Cardiovascular: Reports system reviewed and no additional complaints, except as documented Respiratory Respiratory: Reports system reviewed and no additional complaints, except as documented, Reports shortness of breath, Reports change in phlegm color, Reports chest congestion, Reports cough and Reports wheezing Gastrointestinal Gastrointestingal: Reports system reviewed and no additional complaints, except as documented Genitourinary Male Genitourinary: Reports system reviewed and no additional complaints, except as documented Musculoskeletal Musculoskeletal: Reports system reviewed and no additional complaints, except as documented Integumentary/Breasts Skin/Breast: Reports system reviewed and no additional complaints, except as documented Neurologic Neurologic: Reports system reviewed and no additional complaints, except as documented Endocrine Endocrine: Reports system reviewed and no additional complaints, except as documented Hematologic/Lymphatic Henatologic/Lymphatic: Reports system reviewed and no additional complaints, except as documented Allergic/Immunologic Allergic/Immunologic: Reports system reviewed and no additional complaints, except as documented and Reports wheezing Physical Exam General General appearance: alert Comment: ill appearing Head Head exam: atraumatic and normocephalic Eye Eye exam: Present normal appearance ENT ENT exam: Present mucous membranes moist Expanded ENT Exam External ear exam: Present normal external inspection Nasal speculum exam: Bilateral: other (clear drainage) Mouth exam: Present normal external inspection Teeth exam: Present normal inspection Throat exam: Present normal inspection Neck Neck exam: Present normal inspection; Absent lymphadenopathy Chest Chest inspection: Present normal inspection and symmetric chest wall rise Respiratory Respiratory exam: Present wheezes Expanded Respiratory Exam Location: Left: wheezes and rhonchi, Right: wheezes and rhonchi, Upper: wheezes and rhonchi and Lower: wheezes and rhonchi Cardiovascular Cardiovascular exam: Present regular rate, normal rhythm and normal heart sounds Abdominal Exam Abdominal exam: Present soft and normal bowel sounds Extremities Exam Extremities exam: Present normal inspection Back Exam Back exam: Present normal inspection Neurological Exam Neurological exam: Present alert and oriented X3 Psychiatric Psychiatric exam: Present normal affect and normal mood Skin Skin exam: Present warm, dry and intact Lymphatic Lymphatic Findings: no adenopathy Medical Decision Making Medical Records Screening: Per USPSTF and CDC recommendations, given the prevalence of disease in our region, it is our hospital?s policy to screen for HIV and viral Hepatitis for all patients aged 18 and over and those with ongoing risk factors. Khanh Inquiry Pt receiving controlled substance: No Khanh was queried for this patient: No Vital Signs: 08/29/24 13:27 Temperature 98.0 F Temperature Source Oral Pulse Rate [Radial] 69 Respiratory Rate 16 Blood Pressure [Right Arm] 138/73 Blood Pressure Mean [Right Arm] 94 Blood Pressure Source [Right Arm] Automatic Cuff Blood Pressure Position [Right Arm] Sitting 02 Sat by Pulse Oximetry 98 Oxygen Delivery Method Room Air Orders (Tests/Meds): ED MEDICATIONS Generic Name Dose Route Start Last Admin Trade Name Freq PRN Reason Stop Dose Admin Dexamethasone Sodium Phosphate 4 mg 08/29/24 14:05 08/29/24 14:08 Dexamethasone 4mg/Ml 1ml Vial IM 08/29/24 14:06 4 mg ONCE ONE Administration
[2024-08-29 14:28] VITALS: BP 138/73; PULSE 69; RESP 16; TEMP 36.7; O2SAT 98
== END 2024-08-29 14:28 | disposition home or self-care (01) ==
PROVIDERS: Emergency Provider Nurse Practitioner Family; PCP Family Medicine
DX: J20.9 Acute bronchitis, unspecified (principal); R06.2 Wheezing
CPT/HCPCS: 96372; 99212; 99214; G0463; J1100